=== PATIENT | male | born 1950 | race Caucasian/White ===

== ENCOUNTER 2019-03-23 19:29 | Inpatient (IN) | payer OTHER ==
[~2019-03-23] VITALS: Ht 175.3 cm; Wt 92.1 kg
[~2019-03-23 19:29] MED LIST: ASPIRIN LOW-STR81 M1 PO; DICY10CA PO; RANITIDINE HCL150 M1 PO; WELLBUTRIN SR100 MG PO; WELLBUTRIN XL150 M1 PO
[2019-03-23] MEDS ORDERED: NEURONTIN300 MG (19:44)
[2019-03-23] MEDS ORDERED: TILENOR (19:44)
[2019-03-23] MEDS ORDERED: CLONAZEPAN (19:46)
[2019-03-26] MEDS ORDERED: CLONAZEPAM1 MG PO (10:12)
[2019-03-26] MEDS ORDERED: TYLENOL325 MG (10:14)
[2019-04-05] MEDS ORDERED: FLOVENT DISKU100 MCG IH (13:52)
[2019-04-05] MEDS ORDERED: PRE PROTEIN1 EACH PO (13:54)
[2019-04-05] MEDS ORDERED: VENTOLIN HFA18 GM IH (13:54)
[2019-04-05] MEDS ORDERED: INTESTINEX680 M1 PO (13:55)
[2019-04-05] MEDS ORDERED: CALADRYL 1%-8%177 ML TOP (13:55)
[2019-04-05] MEDS ORDERED: NEURONTIN300 MG PO (13:56)
== END 2019-04-05 18:17 | disposition home or self-care (01) | DRG 444 ==
LOC: ER 19:29 → ICU-2 03-24 07:35 → ICU 03-28 18:42 → SURH 04-01 08:06 → ICU 04-01 08:06 → MEDJ 04-01 13:08
PROVIDERS: ADMIT Internal Medicine
PROC: BB24ZZZ Computerized Tomography (CT Scan) of Bilateral Lungs (ICD-10-PCS; 2019-03-24)
PROC: 02HV33Z Insertion of Infusion Device into Superior Vena Cava, Percutaneous Approach (ICD-10-PCS; 2019-03-24)
PROC: 3E0436Z Introduction of Nutritional Substance into Central Vein, Percutaneous Approach (ICD-10-PCS; 2019-03-24)
PROC: B246ZZZ Ultrasonography of Right and Left Heart (ICD-10-PCS; 2019-03-24)
PROC: BW40ZZZ Ultrasonography of Abdomen (ICD-10-PCS; 2019-03-24)
PROC: BW21Y0Z Computerized Tomography (CT Scan) of Abdomen and Pelvis using Other Contrast, Unenhanced and Enhanced (ICD-10-PCS; 2019-03-25)
PROC: 0W9930Z Drainage of Right Pleural Cavity with Drainage Device, Percutaneous Approach (ICD-10-PCS; principal; 2019-03-27)
PROC: 0W9B30Z Drainage of Left Pleural Cavity with Drainage Device, Percutaneous Approach (ICD-10-PCS; 2019-03-29)
PROC: 4A12X4Z Monitoring of Cardiac Electrical Activity, External Approach (ICD-10-PCS; 2019-03-29)
PROC: 3E0F7GC Introduction of Other Therapeutic Substance into Respiratory Tract, Via Natural or Artificial Opening (ICD-10-PCS; 2019-03-29)
DX: K80.00 Calculus of gallbladder with acute cholecystitis without obstruction (principal); I50.31 Acute diastolic (congestive) heart failure; A41.9 Sepsis, unspecified organism; J18.9 Pneumonia, unspecified organism; B01 Varicella [chickenpox]; J90 Pleural effusion, not elsewhere classified; E44.0 Moderate protein-calorie malnutrition; I30.8 Other forms of acute pericarditis; J98.11 Atelectasis; E87.1 Hypo-osmolality and hyponatremia; R09.02 Hypoxemia; E86.0 Dehydration; I08.0 Rheumatic disorders of both mitral and aortic valves; I11.0 Hypertensive heart disease with heart failure; J43.2 Centrilobular emphysema; N32.89 Other specified disorders of bladder

== ENCOUNTER 2019-11-01 06:52 | Day surgery (SDC) | payer OTHER ==
[~2019-11-01 06:52] MED LIST changes: +CALADRYL 1%-8%177 ML TOP; +CLONAZEPAM1 MG PO; +CLONAZEPAN; +FLOVENT DISKU100 MCG IH; +INTESTINEX680 M1 PO; +NEURONTIN300 MG; +NEURONTIN300 MG PO; +PRE PROTEIN1 EACH PO; +PROTONIX20 MG PO; +SPIRIVA RESPIMAT4 G1 IH; +TILENOR; +TYLENOL325 MG; +VENTOLIN HFA18 GM IH
== END 2019-11-01 17:25 | disposition home or self-care (01) ==
LOC: CIR.AMB 06:52
DX: K42.9 Umbilical hernia without obstruction or gangrene (principal)

== ENCOUNTER 2020-06-04 08:29 | Inpatient (IN) | payer OTHER ==
[~2020-06-04] VITALS: Ht 175.3 cm; Wt 89.8 kg
== END 2020-06-07 13:59 | disposition home or self-care (01) | DRG 416 ==
LOC: ER 08:29 → SURH 16:10 → SEC-K 16:10 → SURH 17:32
PROVIDERS: ADMIT Specialist; ATTEND Specialist
PROC: 0FT40ZZ Resection of Gallbladder, Open Approach (ICD-10-PCS; principal; 2020-06-04)
PROC: BW40ZZZ Ultrasonography of Abdomen (ICD-10-PCS; 2020-06-04)
DX: K80.00 Calculus of gallbladder with acute cholecystitis without obstruction (principal); Z20.828 Contact with and (suspected) exposure to other viral communicable diseases